=== PATIENT | female | born 2000 | race Caucasian/White ===

== ENCOUNTER 2023-05-08 16:08 | Emergency (ER) | payer BC, SELFPAY ==
[2023-05-08] VITALS (7 sets, daily range): BP systolic 114–143; BP diastolic 72–90; BMI 22.7
[2023-05-08 16:56] LABS: % Basophils 0.6 % (0-2); % Immature Granulocytes 0.1 % (0-0.5); % Lymphocytes 25.2 % (20.5-51.1); % Monocytes 7.7 % (1.7-9.3); % Neutrophils 65.4 % (42.2-75.2); Absolute Eosinophils 0.1 10^3/uL (0-0.7); Absolute Lymphocytes 1.8 10^3/uL (1.2-3.4); Absolute Monocytes 0.6 10^3/uL (0.1-0.6); Absolute Neutrophils 4.7 10^3/uL (1.4-6.5); Hematocrit 43.1 % (37.0-47.0); Hemoglobin 15.7 g/dL (12.0-16.0); Mean Corp Hgb Conc. 36.4 g/dL (33.0-37.0); Mean Corpuscular Hgb 31.9 pg (27.0-31.0); Mean Corpuscular Volume 87.6 fL (81.0-99.0); Mean Platelet Volume 13.9 fL (7.4-10.4); Nucleated Red Blood Cells % 0 %; Platelet Count 166 10^3/uL (130-400); Red Blood Cell Count 4.92 10^6/uL (4.20-5.40); Red Cell Dist. Width 11.7 % (11.5-14.5); White Blood Cell Count 7.1 10^3/uL (4.8-10.8)
[2023-05-08 17:06] LABS: Glucose - Point of Care 472 mg/dl (70-99)
[2023-05-08 17:13] LABS: HCG, Serum Qualitative Screen Negative
[2023-05-08 17:18] LABS: ALT (SGPT) 78 U/L (0-35); AST (SGOT) 56 U/L (14-36); Albumin 4.7 g/dl (3.5-5.0); Alkaline Phosphatase 109 U/L (38-126); Blood Urea Nitrogen 10 mg/dl (7-17); Calcium 9.3 mg/dl (8.4-10.2); Carbon Dioxide 23 mmol/L (22-30); Chloride 99 mmol/L (98-107); Estimated Creatinine Clearance > 125 ml/min; Glucose 508 mg/dl (70-99); Potassium 4.1 mmol/L (3.5-5.1); Sodium 131 mmol/L (135-145); Total Bilirubin 1.4 mg/dl (0.2-1.3); Total Protein 7.5 g/dl (6.3-8.2); eGFR > 60.00
[2023-05-08 17:24] LABS: B-Hydroxybutyrate 0.21 mmol/L (0.02-0.27)
[2023-05-08] MEDS: NSS 1000 IV (17:35)
[2023-05-08 17:45] LABS: Urine Albumin Negative (Neg - Trace); Urine Bilirubin Negative (Negative); Urine Character Clear (Clear); Urine Color Yellow; Urine Glucose 3+ (Negative); Urine Ketone Negative (Negative); Urine Leukocyte Negative (Negative); Urine Nitrite Negative (Negative); Urine Occult Blood Negative (Negative); Urine Urobilinogen Negative (Neg - 1+); Urine pH 6.5 (5.0-9.0)
[2023-05-08] MEDS: NOVOLOG vial 4 UNITS SC (18:46)
--- NOTE | 2023-05-08 19:22 | ED.GENMED ---
History of Present Illness
General
Chief Complaint: Blood Sugar Problem
Source: patient and family
Exam Limitations: none
Time Seen by Provider: 05/08/23 16:30
Nursing documentation reviewed up to this point in time: agreed with
Travel History
Have you had any contact with someone who has COVID-19?: No
Do you have any symptoms of coronavirus? Fever > 100 degrees, chills, cough, shortness of breath, sore throat, loss of taste or smell, muscle aches, or headache?: No
History of Present Illness
History of Present Illness:
22-year-old female with no reported chronic medical issues presents to the emergency room for evaluation of hyperglycemia. Patient reports that she went to the school nurse thinking that she could potentially have a yeast infection as she has been
having polyuria/urinary issues for the past week or so. Apparently they did a urinalysis which was positive for glucose which triggered them to check patient's blood sugar which was apparently 491. She was referred to the emergency room to be
assessed. She admits to polyuria and polydipsia for the past week or so as well as some fatigue. She denies any other symptoms such as coughing, shortness of breath, fevers abdominal pain, nausea, vomiting. She denies any known history of
diabetes. She does report a family history of diabetes in her grandparents. She does admit that she tends to snack very often and eats a lot of candy however she is quite active she currently plays college basketball at [employer].
Review of Systems
Review of Systems
All Other Systems: ROS reviewed and negative except as documented in HPI and ROS
Constitutional: Reports fatigue; Denies fever or chills
EENT: Denies sore throat or runny nose
Respiratory: Denies cough or trouble breathing
Cardiac: Denies chest pain or palpitations
ABD/GI: Denies abdominal pain, nausea or vomiting
: Denies flank pain
Musculoskeletal: Denies neck pain or back pain
Neurological: Denies headache, weakness or numbness
Endocrine: Reports polyuria and polydipsia
Phy Exam
Physical Exam
Physical Exam:
General: Awake, alert, oriented x3; no acute distress
Head: Normocephalic, atraumatic
Eyes: Conjunctiva normal, EOMI
Throat: Airway intact, handling secretions
Neck: Trachea midline, supple without meningismus
Lungs: Clear to auscultation bilaterally, no wheezing, rales, rhonchi
Heart: Regular rate and rhythm, no murmurs, gallops, or rubs
Abd: Soft, non distended, nontender
Neuro: Cranial nerves grossly intact, speech fluid
Skin: no rash
Extremities: No edema in extremities, equal pulses in all extremities
Scores
Heart Failure Risk
Heart Failure Risk Score: Not Applicable
Heart Score for Chest Pain Patients
STEMI patient?: Not applicable
Withdrawal Assessment of Alcohol
Withdrawal Assessment Completed?: Not applicable
Course
Orders/Labs/Results
Orders:
Orders
05/08/23 16:18
Test Result ONCE
05/08/23 16:48
B-Hydroxybutyrate Urgent
CMP [Comprehensive Metabolic Panel] Urgent
Complete Blood Count/With Diff Urgent
HCG, Serum Qualitative Screen Urgent
05/08/23 17:17
Hemoglobin A1c [Glycohemoglobin (HgbA1c)] Urgent
05/08/23 17:20
0.9% Sodium Chloride 1000 ml [Nss] 1,000 ml IV BOLUS
05/08/23 17:37
Urinalysis Reflex To Culture Urgent
Date Specimen was Collected: 05/08/23
Time Specimen was Collected: 17:35
05/08/23 18:31
Insulin Aspart [NOVOLOG vial] 4 units SC NOW STA
Abnormal Lab Results
05/08/23 05/08/23 05/08/23
16:48 17:05 17:37
MCH 31.9 H pg
(27.0-31.0)
MPV 13.9 H fL
(7.4-10.4)
Sodium 131 L mmol/L
(135-145)
Glucose 508 H* mg/dl
(70-99)
Total Bilirubin 1.4 H mg/dl
(0.2-1.3)
AST 56 H U/L
(14-36)
ALT 78 H U/L
(0-35)
Urine Glucose 3+ A
(Negative)
POC Glucose 472 H* mg/dl
(70-99)
05/08/23 05/08/23 05/08/23
19:48 20:18 22:33
MCH
MPV
Sodium
Glucose
Total Bilirubin
AST
ALT
Urine Glucose
POC Glucose 270 H mg/dl 214 H mg/dl 133 H mg/dl
(70-99) (70-99) (70-99)
05/08/23 16:48
05/08/23 16:48
Vital Signs
Initial and Last Documented VS:
Initial Vital Signs
Temp Pulse Resp BP Pulse Ox
36.8 C 70 16 135/90 96
05/08/23 16:15 05/08/23 16:15 05/08/23 16:15 05/08/23 16:15 05/08/23 16:15
Last Documented Vital Signs
Temp Pulse Resp BP Pulse Ox
36.8 C 66 20 130/75 98
05/08/23 16:15 05/08/23 22:45 05/08/23 22:45 05/08/23 22:00 05/08/23 22:45
MDM/Problems Addressed
Differential Diagnosis Includes:
New onset diabetes, DKA
MDM/Problems Addressed:
22-year-old female presents for evaluation of hyperglycemia discovered as an outpatient. Blood glucose was apparently 491 today. She has no known history of diabetes. Her complaints are chiefly polyuria and polydipsia as well as some fatigue over
the past week or so. Vital signs are normal here. Exam is benign. Accu-Chek on arrival greater than 500. Placed an IV check labs including a CBC and a CMP, hCG. Will check urinalysis and a beta hydroxybutyrate. Will provide some fluids.
Monitor closely reassess after the above.
Labs reviewed: CBC unremarkable, CMP shows significant hyperglycemia to 508 but no signs of DKA with normal bicarb, no elevated anion gap and a normal beta hydroxybutyrate. Her urinalysis is positive for glucose but no ketones. hCG is negative.
Discussed case with endocrinology to discuss treatment of new onset diabetes without signs of DKA. They recommended giving some subcutaneous insulin here and monitoring her blood glucose. Recommended starting patient on an insulin regimen with 8
units subcutaneous Lantus at bedtime and a sliding scale with Accu-Cheks at mealtime. They will see patient in the office this week. Will provide 4 units subcutaneous insulin to start and reassess.
Patient's blood glucose continues to improve after fluids and subcutaneous insulin. I sent prescription for Lantus and NovoLog KwikPen's to the pharmacy and called over to place a verbal order for glucometer, test strips and lancets. Patient's
father was able to go pick these up from the pharmacy and I had a lengthy discussion with the patient and her family about the diagnosis, treatment plan recommended by endocrinology, follow-up plan. Provided lengthy education regarding how to check
blood glucose including education using patient's new glucometer. Instructed on how to use insulin pens. We went over sliding scale and when to hold insulin. We went over instructions for dietary adjustments and what to do if she begins to feel
dizzy or has low sugar. Will continue to monitor her glucose here to ensure no hypoglycemia given she is insulin na�ve.
Monitored for 6 hours here in the emergency room. Glucose is essentially normalized--Accu-Chek down to 133. She did eat here. Patient and her family feel very comfortable with using glucometer and insulin after education here, feel comfortable
with discharge and follow-up plan in place. Will discharge at this point with endocrine follow-up planned next week. Spoke about return precautions and all questions answered.
*Pulse Oximetry
Patient hypoxic: no
*Critical Care Note
Total Time (30-74mins, 75-104mins- exclusive of procedures): Not Applicable
Data Reviewed
Source: patient and family
Patient Management
Discussion with other providers: Energy Projects Lead (Discussed with endocrinology)
ED Attending Note
-
Portions of this chart may have been created with voice recognition software.� Occasional wrong word or��sound alike� substitutions may have occurred due to the inherent limitations of voice recognition software.
Discharge Plan
Departure
Patient Disposition: Home (Routine Discharge)
Date of Disposition: 05/08/23
Time of Disposition: 22:37
Patient with high blood pressure during this ER visit?: No
Discharge Problem:
Diabetes mellitus, Hyperglycemia
Instructions: Type 2 Diabetes (DC)
Prescriptions:
New
insulin glargine [Lantus Solostar U-100 Insulin] 100 unit/mL (3 mL) insulin pen
8 unit SC QPM Qty: 15 0RF
insulin aspart U-100 [Novolog FlexPen U-100 Insulin] 100 unit/mL (3 mL) insulin pen
1 sliding scale dose SC DIRECTED Qty: 15 0RF
No Action
noreth-ethinyl estradiol-iron [Kaitlib Fe] 0.8mg-25mcg(24) and 75 mg (4) tablet,chewable
1 tab PO DAILY
Referrals:
Ramona Austin MD [Consulting Staff] - Call in 1-3 days for appt (Endocrinology)
Activity Restrictions/Additional Instructions:
YOU SHOULD CHECK YOUR BLOOD SUGAR BEFORE YOU GIVE YOURSELF ANY INSULIN AND STICK TO THE FOLLOWING REGIMEN TO START ( WE DISCUSSED):
AT BEDTIME: TAKE LONG ACTING INSULIN (LANTUS) 8 UNITS
AT MEALTIMES: CHECK BLOOD SUGAR AND USE THE FOLLOWING REGIMEN
IF YOUR BLOOD SUGAR IS 200-250--TAKE 1 UNITS OF SHORT ACTING INSULIN (NOVOLOG)
IF YOUR BLOOD SUGAR IS 250-300--TAKE 2 UNITS OF SHORT ACTING INSULIN (NOVOLOG)
IF YOUR BLOOD SUGAR IS >300--TAKE 4 UNITS OF SHORT ACTING INSULIN (NOVOLOG)
YOU SHOULD GENERALLY TRY TO AVOID SUGARY FOODS/SNACKS. YOU SHOULD, HOWEVER, ALWAYS CARRY JUICE OR SUGARY FOOD WITH YOU AND IF YOU BEGIN TO FEEL DIZZY OR IF YOUR BLOOD SUGAR DROPS TO <70 YOU SHOULD EAT/DRINK TO BRING YOUR SUGAR UP.
YOU MUST FOLLOW UP WITH THE KEY MAKER WE DISCUSSED--YOU SHOULD RECEIVE A CALL TO SCHEDULE AN APPOINTMENT THIS WEEK.
IF YOU HAVE ANY ISSUES OR CONCERNS YOU CAN ALWAYS RETURN TO THE ED FOR HELP.

Thank you for visiting the Emergency Department at [facility].
1. Please schedule a follow up appointment as directed. Call first thing tomorrow morning to make an appointment.
2. If indicated, please take your medications as instructed and indicated on discharge paperwork.
3. If any of your symptoms do not improve, or persist, or become more severe within 6-12 hours, please return to the emergency department for further care.
4. Please return to the emergency department if you develop a headache, neck pain/stiffness, fever greater than 100.4F, chest pain, shortness of breath, persistent nausea, vomiting, slurred speech, difficulty walking, numbness/tingling, weakness,
signs of infection or any other symptoms that are worrisome to you.
Please call [phone] if you have any questions.
Interventions
Interventions:
*Risk Screen - Suicide Last Done: 05/08/23 17:00
*General Assessment Last Done: 05/08/23 16:15
*Neglect/Abuse Screening Last Done: 05/08/23 16:35
ED- Fall Risk Assessment Last Done: 05/08/23 17:00
*ED COVID-19 Vaccine History Last Done: 05/08/23 16:15
*Nursing Disposition Last Done: 05/08/23 23:10
ED- Neurological Assessment Last Done: 05/08/23 17:00
[2023-05-08 19:50] LABS: Glucose - Point of Care 270 mg/dl (70-99)
[2023-05-08 20:19] LABS: Glucose - Point of Care 214 mg/dl (70-99)
[2023-05-08 22:35] LABS: Glucose - Point of Care 133 mg/dl (70-99)
[2023-05-09 14:13] LABS: Glycohemoglobin (HgbA1c) 8.9 % (4.0-5.6)
== END 2023-05-08 23:11 | disposition home or self-care (01) ==
LOC: EMR 16:08
PROVIDERS: Emergency Medicine; EMERGENCY PHYSICIAN Emergency Medicine
DX: E11.65 Type 2 diabetes mellitus with hyperglycemia (principal)
CPT/HCPCS: 99284; 96360; 96372; 80053; 81003; 82010; 82962; 83036; 84703; 85025